=== PATIENT | male | born 1940 | race Caucasian/White ===

== ENCOUNTER → 2016-12-14 | Outpatient (CLI) | payer MEDICARE, BC, OTHER ==
[2015-12-06 10:17] VITALS: BP 152/81
[~2016-12-14] MED LIST: DILTIAZEM120 MG PO; DITROPAN 5MG TAB5 MG PO; FLOMAX0.4 MG PO; HYDROCHLOROTHIA25 MG PO; LIPITOR 10MG10 MG PO; LOPERAMIDE2 MG PO; METFORMIN HCL500 M1 PO; MULTIPLE VITAMI1 CAP PO; VITAMIN E 400 U4001 PO; XARELTO20 MG PO; ZETIA 10MG TAB10 MG PO; ZOVIRAX400 M1 PO
== END ==
LOC: CARDREHAB 11:14
DX: G47.14 Hypersomnia due to medical condition (principal); R09.02 Hypoxemia; R53.83 Other fatigue; G47.33 Obstructive sleep apnea (adult) (pediatric); R06.83 Snoring; E66.3 Overweight; Z68.29 Body mass index [BMI] 29.0-29.9, adult
CPT/HCPCS: G0399

== ENCOUNTER → 2017-06-24 | Outpatient (CLI) | payer MEDICARE, BC, OTHER ==
[2015-12-06 10:17] VITALS: BP 152/81
[2017-06-24 08:11] LABS: HEMATOCRIT 45.8 % (42.0-52.0); HEMOGLOBIN 15.1 g/dL (13.5-18.0); MEAN CELL VOLUME 88 fl (78-100); MEAN CORPUSCULAR HEMOGLOBIN 29 pg (27-31); MEAN CORPUSCULAR HGB CONC 33 g/dL (33-37); MEAN PLATELET VOLUME 9.8 fl (7.4-10.4); PLATELET COUNT 256 K/mm3 (130-400); RED BLOOD COUNT 5.23 M/mm3 (4.20-5.60); RED CELL DISTRIBUTION WIDTH 15.5 % (11.5-14.5)
[2017-06-24 08:29] LABS: ALBUMIN 4.3 g/dL (3.5-5.0); BUN/CREATININE RATIO 16.5 (6.0-26.0); CALCIUM 10.2 mg/dL (8.4-10.2); POTASSIUM 4.3 mmol/L (3.6-5.0); TOTAL BILIRUBIN 0.8 mg/dL (0.2-1.3); TOTAL PROTEIN 7.4 g/dL (6.3-8.2)
[2017-06-24 09:03] LABS: WHITE BLOOD COUNT 33.3 K/mm3 (4.8-10.8)
[2017-06-24 09:04] LABS: LYMPHOCYTE 72 % (20-51); MONOCYTE 7 % (3-10); NEUTROPHILS 21 % (42-75)
[2017-06-24 10:31] LABS: ERYTHROCYTE SEDIMENTATION RATE 0 mm/hr (0-20)
== END ==
LOC: LAB 07:55
PROVIDERS: Internal Medicine
DX: E11.9 Type 2 diabetes mellitus without complications (principal); I10 Essential (primary) hypertension; E78.2 Mixed hyperlipidemia; C91.10 Chronic lymphocytic leukemia of B-cell type not having achieved remission

== ENCOUNTER → 2017-12-23 | Outpatient (CLI) | payer MEDICARE, BC, OTHER ==
[2015-12-06 10:17] VITALS: BP 152/81
[2017-12-23 08:45] LABS: URINE WBC 0 /hpf (0-3)
[2017-12-23 08:54] LABS: HEMATOCRIT 44.4 % (42.0-52.0); HEMOGLOBIN 14.9 g/dL (13.5-18.0); MEAN CELL VOLUME 88 fl (78-100); MEAN CORPUSCULAR HEMOGLOBIN 30 pg (27-31); MEAN CORPUSCULAR HGB CONC 34 g/dL (33-37); MEAN PLATELET VOLUME 9.7 fl (7.4-10.4); PLATELET COUNT 303 K/mm3 (130-400); RED BLOOD COUNT 5.04 M/mm3 (4.20-5.60)
[2017-12-23 09:19] LABS: ALBUMIN 4.3 g/dL (3.5-5.0); CALCIUM 9.8 mg/dL (8.4-10.2); POTASSIUM 3.9 mmol/L (3.6-5.0); TOTAL BILIRUBIN 1.2 mg/dL (0.2-1.3); TOTAL PROTEIN 6.8 g/dL (6.3-8.2)
[2017-12-23 10:34] LABS: URINE APPEARANCE CLEAR; URINE BILIRUBIN NEGATIVE (NEGATIVE); URINE BLOOD NEGATIVE (NEGATIVE); URINE COLOR YELLOW; URINE GLUCOSE NEGATIVE (NEGATIVE); URINE KETONE NEGATIVE (NEGATIVE); URINE LEUKOCYTE ESTERASE NEGATIVE (NEGATIVE); URINE NITRATE NEGATIVE (NEGATIVE); URINE PROTEIN(semi-quant) TRACE mg/dL (NEGATIVE); URINE UROBILINOGEN NORMAL (NORMAL)
[2017-12-23 12:00] LABS: WHITE BLOOD COUNT 36.4 K/mm3 (4.8-10.8)
[2017-12-23 12:01] LABS: MONOCYTE 5 % (3-10); NEUTROPHILS 13 % (42-75)
[2017-12-23 12:02] LABS: LYMPHOCYTE 82 % (20-51)
[2017-12-23 12:15] LABS: ERYTHROCYTE SEDIMENTATION RATE 3 mm/hr (0-20)
[2017-12-24 02:36] LABS: TESTOSTERONE 859 ng/dL (221-716)
== END ==
LOC: LAB 08:35
PROVIDERS: Internal Medicine
DX: Z12.5 Encounter for screening for malignant neoplasm of prostate (principal); Z12.11 Encounter for screening for malignant neoplasm of colon; I10 Essential (primary) hypertension; E11.9 Type 2 diabetes mellitus without complications; E78.5 Hyperlipidemia, unspecified; N52.9 Male erectile dysfunction, unspecified

== ENCOUNTER → 2018-09-05 | Outpatient (CLI) | payer MEDICARE, BC, OTHER ==
[2015-12-06 10:17] VITALS: BP 152/81
[2018-09-05 08:11] LABS: HEMATOCRIT 43.9 % (42.0-52.0); HEMOGLOBIN 14.6 g/dL (13.5-18.0); MEAN CELL VOLUME 89 fl (78-100); MEAN CORPUSCULAR HEMOGLOBIN 30 pg (27-31); MEAN CORPUSCULAR HGB CONC 33 g/dL (33-37); MEAN PLATELET VOLUME 9.7 fl (7.4-10.4); PLATELET COUNT 303 K/mm3 (130-400); RED BLOOD COUNT 4.92 M/mm3 (4.20-5.60); RED CELL DISTRIBUTION WIDTH 14.6 % (11.5-14.5)
[2018-09-05 08:26] LABS: ALBUMIN 4.3 g/dL (3.4-4.8); CALCIUM 10.5 mg/dL (8.3-10.5); POTASSIUM 4.8 mmol/L (3.5-5.1); TOTAL BILIRUBIN 1.1 mg/dL (0.2-1.2)
[2018-09-05 08:49] LABS: URINE APPEARANCE CLEAR; URINE COLOR YELLOW
[2018-09-05 08:50] LABS: URINE BILIRUBIN NEGATIVE (NEGATIVE); URINE BLOOD NEGATIVE (NEGATIVE); URINE GLUCOSE NEGATIVE (NEGATIVE); URINE KETONE NEGATIVE (NEGATIVE); URINE LEUKOCYTE ESTERASE NEGATIVE (NEGATIVE); URINE NITRATE NEGATIVE (NEGATIVE); URINE PROTEIN(semi-quant) TRACE mg/dL (NEGATIVE); URINE UROBILINOGEN NORMAL (NORMAL); URINE WBC 0-1 /hpf (0-3)
[2018-09-05 08:56] LABS: WHITE BLOOD COUNT 38.2 K/mm3 (4.8-10.8)
[2018-09-05 08:58] LABS: LYMPHOCYTE 75 % (20-51); MONOCYTE 1 % (3-10); NEUTROPHILS 24 % (42-75)
== END ==
LOC: RAD 07:42 → LAB 07:42
PROVIDERS: Physician Assistant
DX: K80.20 Calculus of gallbladder without cholecystitis without obstruction (principal); D72.829 Elevated white blood cell count, unspecified
CPT/HCPCS: Q9967

== ENCOUNTER → 2018-12-24 | Outpatient (CLI) | payer MEDICARE, BC, OTHER ==
[2015-12-06 10:17] VITALS: BP 152/81
[2018-12-24 09:30] LABS: HEMATOCRIT 43.7 % (42.0-52.0); HEMOGLOBIN 14.4 g/dL (13.5-18.0); MEAN CELL VOLUME 89 fl (78-100); MEAN CORPUSCULAR HEMOGLOBIN 29 pg (27-31); MEAN CORPUSCULAR HGB CONC 33 g/dL (33-37); MEAN PLATELET VOLUME 9.7 fl (7.4-10.4); PLATELET COUNT 288 K/mm3 (130-400); RED BLOOD COUNT 4.92 M/mm3 (4.20-5.60); RED CELL DISTRIBUTION WIDTH 14.9 % (11.5-14.5)
[2018-12-24 09:37] LABS: ALBUMIN 4.2 g/dL (3.4-4.8); POTASSIUM 4.1 mmol/L (3.5-5.1)
[2018-12-24 09:38] LABS: CALCIUM 10.3 mg/dL (8.3-10.5)
[2018-12-24 09:40] LABS: TOTAL PROTEIN 6.5 g/dL (6.2-8.1)
[2018-12-24 09:41] LABS: TOTAL BILIRUBIN 0.7 mg/dL (0.2-1.2); URINE APPEARANCE CLEAR; URINE BILIRUBIN NEGATIVE (NEGATIVE); URINE BLOOD TRACE (NEGATIVE); URINE COLOR YELLOW; URINE GLUCOSE NEGATIVE (NEGATIVE); URINE KETONE NEGATIVE (NEGATIVE); URINE LEUKOCYTE ESTERASE NEGATIVE (NEGATIVE); URINE NITRATE NEGATIVE (NEGATIVE); URINE PROTEIN(semi-quant) NEGATIVE (NEGATIVE); URINE UROBILINOGEN NORMAL (NORMAL)
[2018-12-24 10:22] LABS: NEUTROPHILS 7 % (42-75)
[2018-12-24 10:23] LABS: LYMPHOCYTE 91 % (20-51); MONOCYTE 1 % (3-10)
[2018-12-24 10:30] LABS: ERYTHROCYTE SEDIMENTATION RATE 4 mm/hr (0-20)
== END ==
LOC: LAB 09:14
PROVIDERS: Internal Medicine
DX: Z12.5 Encounter for screening for malignant neoplasm of prostate (principal); Z12.11 Encounter for screening for malignant neoplasm of colon; E11.9 Type 2 diabetes mellitus without complications; E78.5 Hyperlipidemia, unspecified; I10 Essential (primary) hypertension; I48.0 Paroxysmal atrial fibrillation; N52.9 Male erectile dysfunction, unspecified

== ENCOUNTER → 2019-12-29 | Outpatient (CLI) | payer MEDICARE, BC, OTHER ==
[2015-12-06 10:17] VITALS: BP 152/81
[2019-12-29 09:51] LABS: HEMATOCRIT 44.3 % (42.0-52.0); HEMOGLOBIN 14.3 g/dL (13.5-18.0); MEAN CELL VOLUME 89 fl (78-100); MEAN CORPUSCULAR HEMOGLOBIN 29 pg (27-31); MEAN CORPUSCULAR HGB CONC 32 g/dL (33-37); MEAN PLATELET VOLUME 9.9 fl (7.4-10.4); PLATELET COUNT 278 K/mm3 (130-400); RED BLOOD COUNT 4.96 M/mm3 (4.20-5.60); RED CELL DISTRIBUTION WIDTH 14.7 % (11.5-14.5)
[2019-12-29 10:16] LABS: POTASSIUM 3.9 mmol/L (3.5-5.1)
[2019-12-29 10:17] LABS: ALBUMIN 4.4 g/dL (3.4-4.8)
[2019-12-29 10:18] LABS: CALCIUM 10.1 mg/dL (8.3-10.5)
[2019-12-29 10:19] LABS: TOTAL PROTEIN 6.8 g/dL (6.2-8.1); WHITE BLOOD COUNT 36.3 K/mm3 (4.8-10.8)
[2019-12-29 10:21] LABS: TOTAL BILIRUBIN 1.2 mg/dL (0.2-1.2)
[2019-12-29 10:36] LABS: URINE APPEARANCE HAZY; URINE BILIRUBIN NEGATIVE (NEGATIVE); URINE BLOOD NEGATIVE (NEGATIVE); URINE COLOR YELLOW; URINE GLUCOSE NEGATIVE (NEGATIVE); URINE KETONE NEGATIVE (NEGATIVE); URINE LEUKOCYTE ESTERASE NEGATIVE (NEGATIVE); URINE MUCUS PRESENT (NOT PRESENT); URINE NITRATE NEGATIVE (NEGATIVE); URINE PROTEIN(semi-quant) TRACE mg/dL (NEGATIVE); URINE UROBILINOGEN NORMAL (NORMAL); URINE WBC 0-1 /hpf (0-3)
[2019-12-29 10:52] LABS: LYMPHOCYTE 83 % (20-51); MONOCYTE 3 % (3-10); NEUTROPHILS 14 % (42-75)
[2019-12-29 11:19] LABS: ERYTHROCYTE SEDIMENTATION RATE 1 mm/hr (0-20)
== END ==
LOC: LAB 09:32
PROVIDERS: Internal Medicine
DX: Z12.5 Encounter for screening for malignant neoplasm of prostate (principal); Z12.11 Encounter for screening for malignant neoplasm of colon; E11.9 Type 2 diabetes mellitus without complications; I10 Essential (primary) hypertension; N52.9 Male erectile dysfunction, unspecified

== ENCOUNTER → 2020-10-21 | Outpatient (CLI) | payer MEDICARE, BC, OTHER ==
[2020-10-21 09:35] LABS: HEMATOCRIT 44.6 % (42.0-52.0); HEMOGLOBIN 14.5 g/dL (13.5-18.0); MEAN CELL VOLUME 91 fl (78-100); MEAN CORPUSCULAR HEMOGLOBIN 30 pg (27-31); MEAN CORPUSCULAR HGB CONC 33 g/dL (33-37); MEAN PLATELET VOLUME 9.4 fl (7.4-10.4); PLATELET COUNT 260 K/mm3 (130-400); RED BLOOD COUNT 4.91 M/mm3 (4.20-5.60); RED CELL DISTRIBUTION WIDTH 13.5 % (11.5-14.5)
[2020-10-21 09:49] LABS: ALBUMIN 4.3 g/dL (3.4-4.8); POTASSIUM 4.8 mmol/L (3.5-5.1)
[2020-10-21 09:50] LABS: CALCIUM 10.2 mg/dL (8.3-10.5)
[2020-10-21 09:53] LABS: TOTAL BILIRUBIN 0.9 mg/dL (0.2-1.2)
[2020-10-21 09:58] LABS: MAGNESIUM 1.65 mg/dL (1.60-2.60)
[2020-10-21 12:35] LABS: ERYTHROCYTE SEDIMENTATION RATE 0 mm/hr (0-20); LYMPHOCYTE 80 % (20-51); MONOCYTE 4 % (3-10); NEUTROPHILS 15 % (42-75)
[2020-10-21 12:36] LABS: URINE APPEARANCE CLEAR; URINE BILIRUBIN NEGATIVE (NEGATIVE); URINE BLOOD NEGATIVE (NEGATIVE); URINE COLOR YELLOW; URINE GLUCOSE NEGATIVE (NEGATIVE); URINE KETONE NEGATIVE (NEGATIVE); URINE LEUKOCYTE ESTERASE NEGATIVE (NEGATIVE); URINE NITRATE NEGATIVE (NEGATIVE); URINE PROTEIN(semi-quant) NEGATIVE (NEGATIVE); URINE UROBILINOGEN NORMAL (NORMAL); URINE WBC 0-1 /hpf (0-3)
== END ==
LOC: LAB 09:13
PROVIDERS: Internal Medicine
DX: Z12.5 Encounter for screening for malignant neoplasm of prostate (principal); E11.9 Type 2 diabetes mellitus without complications; I10 Essential (primary) hypertension; E78.2 Mixed hyperlipidemia; K90.9 Intestinal malabsorption, unspecified

== ENCOUNTER → 2021-03-29 | Outpatient (CLI) | payer MEDICARE, BC, OTHER | LOC: RAD 12:12 | DX: J18.9 Pneumonia, unspecified organism (principal); Z20.822 Contact with and (suspected) exposure to COVID-19 ==

== ENCOUNTER → 2021-06-13 | Outpatient (CLI) | payer MEDICARE, BC, OTHER ==
[2021-06-13 11:52] LABS: HEMATOCRIT 42.2 % (42.0-52.0); HEMOGLOBIN 13.4 g/dL (13.5-18.0); MEAN CELL VOLUME 89 fl (78-100); MEAN CORPUSCULAR HEMOGLOBIN 28 pg (27-31); MEAN CORPUSCULAR HGB CONC 32 g/dL (33-37); MEAN PLATELET VOLUME 10.1 fl (7.4-10.4); PLATELET COUNT 316 K/mm3 (130-400); RED BLOOD COUNT 4.74 M/mm3 (4.20-5.60); RED CELL DISTRIBUTION WIDTH 14.9 % (11.5-14.5)
[2021-06-13 12:03] LABS: ALBUMIN 4.3 g/dL (3.4-4.8)
[2021-06-13 12:04] LABS: POTASSIUM 4.1 mmol/L (3.5-5.1)
[2021-06-13 12:05] LABS: CALCIUM 10.8 mg/dL (8.3-10.5)
[2021-06-13 12:06] LABS: TOTAL PROTEIN 6.9 g/dL (6.2-8.1)
[2021-06-13 12:08] LABS: TOTAL BILIRUBIN 1.2 mg/dL (0.2-1.2)
[2021-06-13 12:12] LABS: WHITE BLOOD COUNT 42.7 K/mm3 (4.8-10.8)
[2021-06-13 12:13] LABS: MAGNESIUM 1.98 mg/dL (1.60-2.60)
[2021-06-13 14:58] LABS: LYMPHOCYTE 77 % (20-51); MONOCYTE 6 % (3-10); NEUTROPHILS 17 % (42-75)
== END ==
LOC: LAB 11:27
PROVIDERS: Internal Medicine
DX: J12.9 Viral pneumonia, unspecified (principal); I50.21 Acute systolic (congestive) heart failure

== ENCOUNTER → 2021-07-11 | Outpatient (CLI) | payer MEDICARE, BC, OTHER ==
[2021-07-11 17:07] LABS: HEMOGLOBIN 13.4 g/dL (13.5-18.0); MEAN CELL VOLUME 89 fl (78-100); MEAN CORPUSCULAR HEMOGLOBIN 29 pg (27-31); MEAN CORPUSCULAR HGB CONC 32 g/dL (33-37); MEAN PLATELET VOLUME 10.1 fl (7.4-10.4); PLATELET COUNT 261 K/mm3 (130-400); RED CELL DISTRIBUTION WIDTH 16.7 % (11.5-14.5)
[2021-07-11 17:18] LABS: WHITE BLOOD COUNT 35.2 K/mm3 (4.8-10.8)
[2021-07-11 17:25] LABS: ALBUMIN 4.4 g/dL (3.4-4.8)
[2021-07-11 17:26] LABS: CALCIUM 10.6 mg/dL (8.3-10.5)
[2021-07-11 17:27] LABS: TOTAL PROTEIN 6.9 g/dL (6.2-8.1)
[2021-07-11 17:29] LABS: TOTAL BILIRUBIN 1.3 mg/dL (0.2-1.2)
[2021-07-11 17:36] LABS: LYMPHOCYTE 72 % (20-51); MONOCYTE 10 % (3-10); NEUTROPHILS 18 % (42-75)
== END ==
LOC: RAD 16:45
PROVIDERS: Nurse Practitioner Family
DX: J90 Pleural effusion, not elsewhere classified (principal); I51.7 Cardiomegaly

== ENCOUNTER → 2021-08-18 | Outpatient (CLI) | payer MEDICARE, BC, OTHER ==
[2021-08-18 15:12] LABS: BASO # 0.03 K/mm3 (0.02-0.10); EOS # 0.11 K/mm3 (0.04-0.40); EOS % 0.3 % (0.0-4.0); HEMATOCRIT 43.1 % (42.0-52.0); HEMOGLOBIN 13.6 g/dL (13.5-18.0); LYMPH# 30.58 K/mm3 (1.50-4.00); MEAN CELL VOLUME 91 fl (78-100); MEAN CORPUSCULAR HEMOGLOBIN 29 pg (27-31); MEAN CORPUSCULAR HGB CONC 32 g/dL (33-37); MEAN PLATELET VOLUME 10.5 fl (7.4-10.4); NEU # 6.75 K/mm3 (1.40-6.50); PLATELET COUNT 283 K/mm3 (130-400); RED BLOOD COUNT 4.73 M/mm3 (4.20-5.60); RED CELL DISTRIBUTION WIDTH 16.2 % (11.5-14.5)
[2021-08-18 15:29] LABS: ALBUMIN 4.3 g/dL (3.4-4.8)
[2021-08-18 15:30] LABS: POTASSIUM 4.4 mmol/L (3.5-5.1)
[2021-08-18 15:31] LABS: CALCIUM 10.8 mg/dL (8.3-10.5)
[2021-08-18 15:32] LABS: TOTAL PROTEIN 6.9 g/dL (6.2-8.1)
[2021-08-18 15:34] LABS: TOTAL BILIRUBIN 1.5 mg/dL (0.2-1.2)
[2021-08-18 15:35] LABS: WHITE BLOOD COUNT 39.5 K/mm3 (4.8-10.8)
[2021-08-18 15:39] LABS: MAGNESIUM 2.39 mg/dL (1.60-2.60)
[2021-08-18 16:30] LABS: LYMPHOCYTE 79 % (20-51); NEUTROPHILS 17 % (42-75)
[2021-08-18 16:31] LABS: MONOCYTE 4 % (3-10)
== END ==
LOC: LAB 14:53
PROVIDERS: Internal Medicine
DX: I11.0 Hypertensive heart disease with heart failure (principal); I50.89 Other heart failure; I48.0 Paroxysmal atrial fibrillation; E11.65 Type 2 diabetes mellitus with hyperglycemia; G47.33 Obstructive sleep apnea (adult) (pediatric)

== ENCOUNTER → 2021-09-11 | Outpatient (CLI) | payer MEDICARE, BC, OTHER ==
[~2021-09-11] MED LIST changes: +ENTRESTO 24 MG1 EACH PO; +EZETIMIBE10 M1 PO; +FUROSEMIDE20 MG PO; +FUROSEMIDE40 MG PO
[2021-09-11 12:55] LABS: ALBUMIN 4.1 g/dL (3.4-4.8)
[2021-09-11 12:56] LABS: POTASSIUM 3.4 mmol/L (3.5-5.1)
[2021-09-11 12:57] LABS: CALCIUM 10.8 mg/dL (8.3-10.5)
[2021-09-11 12:58] LABS: TOTAL PROTEIN 7.1 g/dL (6.2-8.1)
[2021-09-11 13:00] LABS: TOTAL BILIRUBIN 1.5 mg/dL (0.2-1.2)
[2021-09-11 13:05] LABS: MAGNESIUM 2.18 mg/dL (1.60-2.60)
== END ==
LOC: LAB 12:34
PROVIDERS: Internal Medicine
DX: I50.23 Acute on chronic systolic (congestive) heart failure (principal)